=== PATIENT | male | born 1970 | race Caucasian/White ===

== ENCOUNTER 2016-12-22 15:56 | Emergency (ER) | payer BC, OTHER ==
[~2016-12-22] VITALS: Ht 172.7 cm; Wt 84.6 kg
[2016-12-22 16:01] VITALS: TEMP 36.7; Ht 172.7 cm; Wt 84.6 kg
[2016-12-22] MEDS ORDERED: SODIUM CHLORIDE 0.9% 1000ML 1,000 ML IV STA ×2 (16:10)
[2016-12-22 16:46] LABS: BASO % 0.4 %; BASO ABS # 0.03 K/uL (0-0.2); COMPLETE YES; EOS % 7.1 %; HEMATOCRIT 44.3 % (42-52); IG% 0.1 %; LYMPH % 29.5 %; LYMPH ABS # 2.31 K/uL (1.2-3.4); MEAN CELL VOLUME 87.2 fL (80-100); MEAN CORPUSCULAR HEMOGLOBIN 28.7 pg (25-34); MEAN PLATELET VOLUME 9.7 fL (7.4-10.4); MONO % 5.4 %; NEUT % 57.5 %; PLATELET COUNT 268 K/uL (130-400); RED BLOOD COUNT 5.08 M/uL (4.7-6.1); WHITE BLOOD COUNT 7.84 K/uL (4.8-10.8)
[2016-12-22 16:54] LABS: PARTIAL THROMBOPLASTIN RATIO 1.1
[2016-12-22 17:04] LABS: BUN/CREATININE RATIO 10.7 (10-20); CALCIUM 8.4 mg/dl (8.5-10.1); CREATININE 1.4 mg/dl (0.60-1.40); POTASSIUM 4.1 mmol/L (3.5-5.1)
--- NOTE | 2016-12-22 17:20 | DIAGNOSTIC IMAGING REPORT ---
CHEST ONE VIEW PORTABLE HISTORY: cough COMPARISON: Chest 04/28/2006. FINDINGS: The lungs are clear. Cardiac silhouette is normal in size. No pleural effusions. No pneumothorax. IMPRESSION: No acute process. Electronically signed by: Conor Damon M.D. 12/22/2016 5:18 PM Dictated Date/Time: 12/22/2016 5:17 PM
--- NOTE | 2016-12-22 17:33 | DIAGNOSTIC IMAGING REPORT ---
ABDOMEN AND PELVIS CT WITHOUT CONTRAST CT DOSE: 412.63 mGy.cm HISTORY: flu like symptoms, bloody stools TECHNIQUE: Multiaxial CT images of the abdomen and pelvis were performed without contrast. COMPARISON STUDY: None. FINDINGS: The lung bases are clear. The unenhanced liver, spleen, gallbladder, pancreas, kidneys, and adrenal glands are within normal limits. No bowel wall thickening or obstruction. The pelvic organs are unremarkable. No suspicious lytic or blastic osseous lesions. Tiny fat-containing umbilical hernia. Normal appendix. Suboptimal evaluation for bowel pathology due to the lack of intravenous and oral contrast. IMPRESSION: 1. No bowel wall thickening or obstruction. 2. Normal appendix. Electronically signed by: Conor Damon M.D. 12/22/2016 5:31 PM Dictated Date/Time: 12/22/2016 5:19 PM
[2016-12-22 17:46] LABS: URINE APPEARANCE CLEAR (CLEAR); URINE BILIRUBIN NEG (NEG); URINE COLOR YELLOW; URINE NITRITE NEG (NEG); URINE SPECIFIC GRAVITY 1.024 (1.000-1.030); UROBILINOGEN NEG (NEG); ZZUR CULT IF INDIC CLEAN CATCH NO
[2016-12-22 17:49] VITALS: BP 134/92; PULSE 70; O2SAT 100
[2016-12-22] MEDS ORDERED: PANTOprazole SOD 40 MG TAB PO STA (17:54)
[2016-12-22 18:00] LABS: MANUAL MICROSCOPIC REQUIRED? NO; REVIEW REQ? NO
--- NOTE | 2016-12-22 18:04 | EMERGENCY ROOM VISIT NOTE ---
History Report prepared by Staci: Amy Rojas Under the Supervision of: Dr. Adolfo Boyce M.D. First contact with patient: 16:07 Chief Complaint: RECTAL BLEEDING Stated Complaint: RECTAL BLEEDING History of Present Illness The patient is a 46 year old male who presents to the Emergency Room with complaints of an episode of a rectal bleed starting four days ago. He states that last weekend he left for work early because he had a cold. He states that he came home early six days ago because he felt awful. He reports that he slept all day that day. The patient reports that he didn't eat much and then four days ago passed gas that smelled awful, which is unusual for him. He states that following that he had a bowel movement that filled the whole toilet with blood. He states that it was bright red. He reports that he has had four bowel movements since three days ago and all have had this bright red blood. His reports that it looked worse than when she has her period. The patient complains of lower back pain, but associated it with coughing phlegm up. He notes that he is not nauseous, but his stomach is unsettled. He states that he did have a headache, but associated that with his cold like symptoms. His reports that they came to the ED today because after taking her mother out for dinner for mother's day, they went to [place] where she noticed he was walking funny. She states he just hasn't seemed right and it is worsening. The patient notes that he had a blood clot in his arm seven years ago, but that it resolved before he could have the surgery. He notes he is on no blood thinners. Pt denies LOC, fevers, chills, diaphoresis, visual changes, neck pain, chest pain, breathing difficulties, vomiting, abdominal pain, melena, urinary symptoms, numbness, weakness, lymphadenopathy, rash, or other complaints. Source of History: patient Onset: four days ago Position: other (rectum) Quality: other (global) Timing: other (episode) Associated Symptoms: + back pain, + cough, + headache, + vomiting Review of Systems See HPI for pertinent positives and negatives. A total of ten systems were reviewed and were otherwise negative. Family History No pertinent family history Social History Smoking Status: Never Smoker Alcohol Use: occasionally Drug Use: none Marital Status: single, in relationship Occupation Status: unemployed Current/Historical Medications No Active Prescriptions or Reported Meds Allergies Coded Allergies: No Known Allergies (Unverified , 04/19/12) Physical Exam Vital Signs Date Time Temp Pulse Resp B/P Pulse Ox O2 Delivery O2 Flow Rate FiO2 12/22/16 17:49 70 18 134/92 100 Room Air 12/22/16 16:49 73 12/22/16 16:01 36.7 82 20 138/88 96 Room Air Physical Exam GENERAL: Awake, alert, well-appearing, in no distress HENT: Normocephalic, atraumatic. Oropharynx unremarkable. EYES: Normal conjunctiva. Sclera non-icteric. NECK: Supple. No nuchal rigidity. FROM. No JVD. RESPIRATORY: Clear to auscultation. CARDIAC: Regular rate, normal rhythm. Extremities warm and well perfused. Pulses equal. ABDOMEN: Soft, non-distended. No tenderness to palpation. No rebound or guarding. No masses. RECTAL: Deferred. No fissure or hemorrhoids. Brown stool. Hemoccult positive. MUSCULOSKELETAL: Chest examination reveals no tenderness. The back is symmetrical on inspection without obvious abnormality. There is no CVA tenderness to palpation. No joint edema. LOWER EXTREMITIES: Calves are equal size bilaterally and non-tender. No edema. No discoloration. NEURO: Normal sensorium. No sensory or motor deficits noted. SKIN: No rash or jaundice noted. Medical Decision & Procedures Laboratory Results 12/22/16 16:37 Red Blood Count 5.08, Mean Corpuscular Volume 87.2, Mean Corpuscular Hemoglobin 28.7, Mean Corpuscular Hemoglobin Concent 33.0, Mean Platelet Volume 9.7, Neutrophils (%) (Auto) 57.5, Lymphocytes (%) (Auto) 29.5, Monocytes (%) (Auto) 5.4, Eosinophils (%) (Auto) 7.1, Basophils (%) (Auto) 0.4, Neutrophils # (Auto) 4.51, Lymphocytes # (Auto) 2.31, Monocytes # (Auto) 0.42, Eosinophils # (Auto) 0.56, Basophils # (Auto) 0.03 12/22/16 16:37 Test 12/22/16 16:37 12/22/16 17:30 White Blood Count 7.84 K/uL (4.8-10.8) Red Blood Count 5.08 M/uL (4.7-6.1) Hemoglobin 14.6 g/dL (14.0-18.0) Hematocrit 44.3 % (42-52) Mean Corpuscular Volume 87.2 fL (80-100) Mean Corpuscular Hemoglobin 28.7 pg (25-34) Mean Corpuscular Hemoglobin Concent 33.0 g/dl (32-36) Platelet Count 268 K/uL (130-400) Mean Platelet Volume 9.7 fL (7.4-10.4) Neutrophils (%) (Auto) 57.5 % Lymphocytes (%) (Auto) 29.5 % Monocytes (%) (Auto) 5.4 % Eosinophils (%) (Auto) 7.1 % Basophils (%) (Auto) 0.4 % Neutrophils # (Auto) 4.51 K/uL (1.4-6.5) Lymphocytes # (Auto) 2.31 K/uL (1.2-3.4) Monocytes # (Auto) 0.42 K/uL (0.11-0.59) Eosinophils # (Auto) 0.56 K/uL (0-0.5) Basophils # (Auto) 0.03 K/uL (0-0.2) RDW Standard Deviation 42.9 fL (36.4-46.3) RDW Coefficient of Variation 13.2 % (11.5-14.5) Immature Granulocyte % (Auto) 0.1 % Immature Granulocyte # (Auto) 0.01 K/uL (0.00-0.02) Prothrombin Time 11.0 SECONDS (9.0-12.0) Prothromb Time International Ratio 1.0 (0.9-1.1) Activated Partial Thromboplast Time 27.4 SECONDS (21.0-31.0) Partial Thromboplastin Ratio 1.1 Anion Gap 7.0 mmol/L (3-11) Est Creatinine Clear Calc Drug Dose 70.6 ml/min Estimated GFR () 69.8 Estimated GFR (Non- 60.3 BUN/Creatinine Ratio 10.7 (10-20) Calcium Level 8.4 mg/dl (8.5-10.1) Total Bilirubin 0.5 mg/dl (0.2-1) Direct Bilirubin 0.1 mg/dl (0-0.2) Aspartate Amino Transf (AST/SGOT) 17 U/L (15-37) Alanine Aminotransferase (ALT/SGPT) 28 U/L (12-78) Alkaline Phosphatase 64 U/L (45-117) Total Protein 7.4 gm/dl (6.4-8.2) Albumin 3.6 gm/dl (3.4-5.0) Lipase 223 U/L (73-393) Laboratory results reviewed by me Medications Administered Medications (Trade) Dose Ordered Sig/Janice Route Start Time Stop Time Status Last Admin Dose Admin Sodium Chloride 1,000 ml @ 125 mls/hr Q8H STAT IV 12/22/16 16:10 12/23/16 00:09 12/22/16 17:35 125 MLS/HR Sodium Chloride (Nss 1000ml) 1,000 ml @ 999 mls/hr Q1H1M STAT IV 12/22/16 16:10 12/22/16 17:10 DC 12/22/16 16:10 999 MLS/HR ECG Indication: vomiting Rhythm: normal sinus Findings: no acute ischemic change, no ectopy ED Course 1607: The patient was evaluated in room A12. A complete history and physical exam was performed. 1610: Ordered NSS 1000 ml @ 999 mls/hr IV, NSS 1000 ml @ 125 mls/hr IV. 1740: GI paged 1746: Discussed the case with Dr. theodore. The patient is hemodynamically stable and has no diagnostic abnormality she felt office follow-up would be most appropriate and I agree. 1750: Patient was informed. He is a some dramatic. He feels comfortable plan. Medical Decision Prior records/ancillary studies reviewed. Triage Nursing notes reviewed and agree them. Additional history obtained from the patient's . The patient's history was concerning for possible gastrointestinal bleeding. Differential diagnosis: Etiologies such as diverticulosis, AVM, coagulopathy, colitis, inflammatory bowel disease, malignancy,Poly-Amador tear, esophagitis, peptic ulcer disease , variceal bleed, gastritis, epistaxis, fissure, hemorrhoids, as well as others were entertained. Physical exam: As above. Brown stool but heme occult positive. ER treatment provided: IV saline hydration On reassessment the patient felt better. Patient was basically symptomatic. Oral Protonix Diagnostics interpreted by me: ECG: Normal sinus rhythm. The labs revealed an unremarkable CBC, chemistry panel, LFTs and lipase. Urine dip was negative. Imaging studies: Chest x-ray and CT scan as above Consultation: A consultation was placed with the GI doctor personal financial representative, Dr. theodore. The case was discussed and diagnostics were reviewed. The patient will be seen in the office as he is hemodynamically stable and essentially asymptomatic at this time. By the evaluation outlined above emergent etiologies such as esophageal perforation, peptic ulcer disease, variceal bleed, coagulopathy, gastritis, epistaxis, malignancy, inflammatory bowel disease, as well as others were deemed relatively unlikely. The patient was informed about the findings as listed above. All questions were answered and he was pleased with the treatment. Return instructions were outlined and the patient was discharged in stable condition. Referral: The patient was referred to gastroenterology for a recheck of the current condition. The chart was completed utilizing [employer] Speech voice recognition software. Grammatical errors, random word insertions, pronoun errors, and incomplete sentences are an occasional consequence of this system due to software limitations, ambient noise, and hardware issues. Any formal questions or concerns about the content, text, or information contained within the body of this dictation should be directly addressed to the physician for clarification. Impression Primary Impression: GI bleed Scribe Attestation The scribe's documentation has been prepared under my direction and personally reviewed by me in its entirety. I confirm that the note above accurately reflects all work, treatment, procedures, and medical decision making performed by me. Departure Information Dispostion Home / Self-Care Prescriptions No Active Prescriptions or Reported Meds Referrals No Doctor, Assigned (PCP) Patient Instructions My [facility] Additional Instructions Avoid aspirin or ibuprofen containing products. Acetaminophen(Tylenol) may be used for fever or pain. Use 1000mg every six hours as needed. Avoid using more than 4000mg in a 24 hour period. Rest and drink plenty of fluids as tolerated. Slow sips of water or sports drinks are recommended instead of large amounts all at once. Prilosec OTC: Take two pills every morning until directed otherwise by your primary care physician. Once your stomach is settled start with a clear liquid diet (jello, soup broth, etc.) and then advance as tolerated. You should avoid full, heavy meals for about 24 hrs from the time your symptoms resolved. Return to the ER immediately for worsening or persistent abdominal pain, vomiting, fevers, chest pains, difficulty breathing, black or bloody stools, worsening of your condition, or as needed. Follow up with Dr. Theodore of GI for a recheck of your current condition. If you do not hear from the office tomorrow call them at the number listed below.
== END 2016-12-22 18:33 | disposition home or self-care (01) ==
LOC: C.EDB 15:57 → C.EDA 18:33
DX: K92.2 Gastrointestinal hemorrhage, unspecified (principal)